=== PATIENT | male | born 1965 | race Caucasian/White ===

== ENCOUNTER 2017-12-07 06:34 | Day surgery (SDC) | payer BC ==
[~2017-12-07] VITALS: Ht 188 cm; Wt 195.0 kg
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
[~2017-12-07 06:34] MED LIST: ASPIRIN EC81 M1 PO; FLOMAX0.4 MG PO; OMEGA 3 FISH OI1 CAP PO; PRINZIDE 20-251 TA1 PO; VICTOZA0.6 MG/0.1 SQ
[2017-12-07 07:17] LABS: HEMATOCRIT 38.9 % (42.0-54.0); HEMOGLOBIN 13.1 g/dL (13.5-17.5); MCH 28.6 pg (26.0-34.0); MCHC 33.7 g/dL (31.0-37.0); MCV 84.9 fL (80.0-100.0); MEAN PLATELET VOLUME 9.8 fL (7.4-10.4); RBC 4.58 10x6/uL (4.20-6.10); RDW 13.2 % (11.5-14.5); WBC 7.5 10x3/uL (4.8-10.8)
[2017-12-07 07:55] LABS: CALC OSMOLALITY 283 mosm/kg (275-300); CALCIUM 8.8 mg/dL (8.5-10.1); CHLORIDE - SERUM 104 mmol/L (98-107); CREATININE - SERUM 1.1 mg/dL (0.6-1.3); GLUCOSE 94 mg/dL (74-106); POTASSIUM - SERUM 3.8 mmol/L (3.5-5.1); SODIUM 141 mmol/L (136-145); UREA NITROGEN 22 mg/dL (7-18); eGFR NON AFRICAN AMERICAN 75 mL/min (90-120)
[2017-12-07 08:21] VITALS: BP 123/57; Ht 188 cm; Wt 195.0 kg
== END 2017-12-07 13:55 | disposition home or self-care (01) ==
LOC: D.OPS 06:34 → D.PAN 09:15 → D.OPS 09:15
PROVIDERS: Anesthesiology
DX: N40.1 Benign prostatic hyperplasia with lower urinary tract symptoms (principal); N13.8 Other obstructive and reflux uropathy; N35.9 Urethral stricture, unspecified; N32.89 Other specified disorders of bladder; Z01.812 Encounter for preprocedural laboratory examination

== ENCOUNTER → 2018-01-20 18:00 | Outpatient (CLI) | payer BC ==
[2017-12-07 08:21] VITALS: BMI 55.3
== END | disposition home or self-care (01) ==
LOC: D.LABREF 18:00
DX: N39.0 Urinary tract infection, site not specified (principal)

== ENCOUNTER → 2018-02-03 18:07 | Outpatient (CLI) | payer BC ==
[2017-12-07 08:21] VITALS: BMI 55.3
== END | disposition home or self-care (01) ==
LOC: D.LABREF 18:07
DX: N39.0 Urinary tract infection, site not specified (principal)